=== PATIENT | female | born 1980 | race African-American/Black ===

== ENCOUNTER 2017-03-09 08:35 | Observation (INO) | payer OTHER ==
[2017-03-09 10:31] VITALS: BP 99/56
[2017-03-09] MEDS ORDERED: PRENATALVIT PO (10:34)
[2017-03-09] MEDS ORDERED: RINGERS SOLUTION,LACTATED 1,000 ML IV ONE (11:00)
[2017-03-09] MEDS ORDERED: RINGERS SOLUTION,LACTATED 1,000 ML IV SCH (11:00)
[2017-03-09] MEDS ORDERED: PREN1TAB80 PO (11:01)
== END 2017-03-09 15:53 | disposition home or self-care (01) ==
LOC: 4S 08:35
PROVIDERS: ADMIT Obstetrics & Gynecology; ATTEND Obstetrics & Gynecology
DX: O36.8130 Decreased fetal movements, third trimester, not applicable or unspecified (principal); O09.523 Supervision of elderly multigravida, third trimester; O26.893 Other specified pregnancy related conditions, third trimester; R10.31 Right lower quadrant pain; Z3A.36 36 weeks gestation of pregnancy
CPT/HCPCS: 59025; 96360; 96361; G0378; J7120

== ENCOUNTER 2025-09-19 14:07 | Emergency (ER) | payer OTHER ==
[~2025-09-19] VITALS: Ht 160 cm; Wt 59.3 kg
[~2025-09-19 14:07] MED LIST: PREN1TAB80 PO
[2025-09-19 14:12] VITALS: BP 114/78; PULSE 84; RESP 18; TEMP 98.4; O2SAT 95
== END 2025-09-19 15:19 | disposition home or self-care (01) ==
LOC: EMS 14:07
DX: R11.0 Nausea (principal); F12.90 Cannabis use, unspecified, uncomplicated; N91.2 Amenorrhea, unspecified; Z98.890 Other specified postprocedural states; Z32.02 Encounter for pregnancy test, result negative
CPT/HCPCS: 84703; 99283